=== PATIENT | female | born 1955 | race Caucasian/White ===

== ENCOUNTER 2017-05-18 12:06 | Emergency (ER) | payer OTHER ==
[2017-05-18] MEDS: HYDROCODONE/APAP (5/325) TAB PO (14:02)
== END 2017-05-18 15:16 | disposition home or self-care (01) ==
LOC: FTE 12:06
DX: M25.511 Pain in right shoulder (principal)
CPT/HCPCS: 73030; 73030-RT; 99283-25